=== PATIENT | female | born 1950 | race Caucasian/White ===

== ENCOUNTER 2023-06-03 14:15 | Emergency (ER) | payer MEDICARE, MEDICAID ==
--- NOTE | 2023-06-03 14:32 | ED Physician Documentation ---
PD HPI ABD PAIN - Stated complaint Stated Complaint: RT ABD PX - Chief complaint Chief Complaint: Abd Pain - History obtained from History obtained from: Patient - History of Present Illness Timing - onset: Today (Onset this morning of right lower abdominal pain radiating to the right flank worsened with movement and associated with nausea. No vomiting or diarrhea. No dysuria. No prior similar.) Timing - duration: Hours Timing - details: Abrupt onset, Still present Quality: Sharp, Pain Location: RLQ Radiation: Right flank Improved by: No: Laying still, Position Worsened by: Moving. No: Breathing Associated symptoms: Nausea. No: Fever, Vomiting, Diarrhea, Constipation, Dysuria Similar symptoms before: Has not had sx before Review of Systems Constitutional: denies: Fever, Chills Nose: denies: Rhinorrhea / runny nose, Congestion Throat: denies: Sore throat Respiratory: denies: Cough GI: reports: Abdominal Pain, Nausea. 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 : None Psych: None Musculoskeletal: None Derm: None - Past Surgical History Past Surgical History: Yes Ortho: Other HEENT: Other - Allergies Allergies/Adverse Reactions: Allergies Allergy/AdvReac Type Severity Reaction Status Date / Time No Known Drug Allergies Allergy Verified 06/03/23 14:20 - Social History Does the pt smoke?: No Smoking Status: Never smoker Does the pt drink ETOH?: Yes Does the pt have substance abuse?: No - Immunizations Immunizations are current?: Yes PD ED PE NORMAL - Vitals Vital signs reviewed: Yes - General General: Alert and oriented X 3, Well developed/nourished, Other (appears in pain and moving restlessly. ) - Cardiac Cardiac: RRR, No murmur - Respiratory Respiratory: No respiratory distress, Clear bilaterally - Abdomen Abdomen: Soft, Non distended, No organomegaly, Other (mild to moderate tenderness RLQ without guarding nor percussion tenderness. Some right flank tenderness to percussion. ) - Female Female : Deferred - Rectal Rectal: Deferred - Derm Derm: Normal color, Warm and dry - Neuro Neuro: Alert and oriented X 3, No motor deficit, Normal speech Results - Vitals Vitals: Oxygen O2 Source Room air - Labs Labs: Laboratory Tests 06/03/23 06/03/23 06/03/23 14:41 14:41 16:14 WBC 10.5 RBC 4.11 L Hgb 12.1 Hct 38.2 MCV 92.9 MCH 29.4 MCHC 31.7 L RDW 12.7 Plt Count 284 MPV 10.6 Neut # (Auto) 7.3 H Lymph # (Auto) 2.0 [place] # (Auto) 0.6 Eos # (Auto) 0.4 Baso # (Auto) 0.1 Absolute Nucleated RBC 0.00 Nucleated RBC % 0.0 Sodium 136 Potassium 3.8 Chloride 102 Carbon Dioxide 26 Anion Gap 8.0 BUN 14 Creatinine 0.9 Estimated GFR (MDRD) 62 L Glucose 258 H Calcium 9.8 Total Bilirubin 0.6 AST 19 ALT 17 Alkaline Phosphatase 65 Total Protein 7.1 Albumin 4.3 Globulin 2.8 Albumin/Globulin Ratio 1.5 Lipase < 10 L Urine Color LT. YELLOW Urine Clarity CLEAR Urine pH 7.0 Ur Specific Wheeler 1.010 Urine Protein NEGATIVE Urine Glucose (UA) >=1000 H Urine Ketones NEGATIVE Urine Occult Blood NEGATIVE Urine Nitrite NEGATIVE Urine Bilirubin NEGATIVE Urine Urobilinogen 0.2 (NORMAL) Ur Leukocyte Esterase NEGATIVE Ur Microscopic Review NOT INDICATED Urine Culture Comments NOT INDICATED - Rads (name of study) abd/pelvic CT Relevant Findings:: Prelim report reviewed (moderate stool burden. Normal appendix and GB. Decreased attenuation in pancreatic body could be pancreatitis, fatty infiltrate, ess likely malignancy. Suggests outpt MRI. ), EMP independent interpretation of test PD Medical Decision Making - ED course Complexity details: reviewed results (normal appendix, GB. Moderate stool load. Attenuation in body of pancreas - consider inflammation, focal fatty infiltrate, less likely mass. Correlate with labs. Consider f/u MRI. I did tell them this verbally and gave copy of CT report to them. ), re-evaluated patient (feeling improved after dosing IV with fluids, Zofran, Toradol and Dilaudid. Still some tender RLQ. But testinf does not show acute procdss per se. ), considered differential, d/w patient Departure - Departure Disposition: 01 Home, Self Care Clinical Impression: Right lower quadrant abdominal pain, Increased stool volume, Pancreatic abnormality Condition: Stable Record reviewed to determine appropriate education?: Yes Instructions: ED Abdominal Pain Female Non-Specific Abdominal Pain Comments: Your CT scan does not show an obvious cause for the pain. They comment on some increased stool amounts but that can be quite variable on imaging and does not necessarily mean cause of the pain. If it is connected, I would suggest using a stool softener such as docusate 100 mg once or twice daily over the next several days to a week. Continue with some Metamucil type fiber and stay well-hydrated. We did give a dose of a stool softener and a mild laxative here today to get things started. Otherwise he may be having some musculoskeletal pain given the increase with movement and such. I would suggest some Advil/ibuprofen 400 to 600 mg 3 times daily with food for the next 5 or 6 days. Add Tylenol every 4-6 hours if needed for pain. See how you feel over the next few days with these. Follow-up with your primary care or return to the ER if persistent or increasing symptoms again. Watch for signs of any other new symptoms developing such as fevers or rash or change in location or such Otherwise I would anticipate the symptoms improving over the next few days. Forms: PCP List Discharge Date/Time: 06/03/23 18:07
[2023-06-03 14:49] LABS: BASOPHILS # (AUTO) 0.1 10^3/uL (0.0-0.1); BASOPHILS % (AUTO) 0.9 %; EOSINOPHILS # (AUTO) 0.4 10^3/uL (0.0-0.7); EOSINOPHILS % (AUTO) 3.8 %; HCT - HEMATOCRIT 38.2 % (37.0-47.0); HGB - HEMOGLOBIN 12.1 g/dL (12.0-16.0); LYMPHOCYTES % (AUTO) 19.3 %; MEAN CORPUSCULAR HEMOGLOBIN 29.4 pg (27.0-31.0); MEAN CORPUSCULAR HGB CONC 31.7 g/dL (32.0-36.0); MEAN CORPUSCULAR VOLUME 92.9 fL (81.0-99.0); MEAN PLATELET VOLUME 10.6 fL (7.9-10.8); MONOCYTES # (AUTO) 0.6 10^3/uL (0.0-1.0); NEUTROPHILS # (AUTO) 7.3 10^3/uL (1.5-6.6); NEUTROPHILS % (AUTO) 69.7 %; PLT - PLATELET COUNT 284 10^3/uL (130-450); RED BLOOD COUNT 4.11 10^6/uL (4.20-5.40); RED CELL DISTRIBUTION WIDTH 12.7 % (12.0-15.0); WHITE BLOOD COUNT 10.5 x10^3/uL (4.8-10.8)
[2023-06-03 15:04] LABS: ALBUMIN 4.3 g/dL (3.2-5.5); ALBUMIN/GLOBULIN RATIO 1.5 (1.0-2.2); ALKALINE PHOSPHATASE 65 IU/L (42-121); ALT ALANINE AMINOTRANSFERASE 17 IU/L (10-60); AST ASPARTATE AMINOTRANSFERASE 19 IU/L (10-42); BILIRUBIN,TOTAL 0.6 mg/dL (0.2-1.0); BUN - BLOOD UREA NITROGEN 14 mg/dL (6-20); CALCIUM 9.8 mg/dL (8.5-10.3); CARBON DIOXIDE - CO2 26 mmol/L (21-32); CHLORIDE 102 mmol/L (101-111); CREATININE 0.9 mg/dL (0.6-1.3); GFR - MDRD 62 (>89); GLUCOSE 258 mg/dL (74-104); LIPASE < 10 U/L (11-82); POTASSIUM 3.8 mmol/L (3.5-4.5); SODIUM 136 mmol/L (135-145); TOTAL PROTEIN 7.1 g/dL (6.4-8.9)
[2023-06-03] MEDS ORDERED: iohexoL-300 100 ML VIAL ONE (15:07)
[2023-06-03] MEDS: KETOROLAC 15 MG/ML VIAL IVP STA (15:09)
[2023-06-03] MEDS: ONDANSETRON 4 MG/2 ML VIAL IVP STA (15:09)
[2023-06-03] MEDS: HYDROmorphone 0.5 MG/0.5 ML SYRINGE IVP STA (15:10)
[2023-06-03] MEDS: iohexoL-300 100 ML VIAL IVP ONE (15:39)
[2023-06-03] MEDS: SODIUM CHLORIDE 0.9% 1,000 ML IV STA (15:50)
--- NOTE | 2023-06-03 15:56 | CT Report ---
PROCEDURE: Abdomen/Pelvis W INDICATIONS: right lower abd pain onset this AM CONTRAST: 100mL Omni 300 TECHNIQUE: After the administration of intravenous contrast, a CT scan of the abdomen and pelvis was performed. Images were recorded and evaluated at appropriate window settings. Reformats: coronal and sagittal. F or radiation dose reduction, the following was used: automated exposure control, adjustment of mA and /or kV according to patient size. COMPARISON: None. FINDINGS: Image quality: Diagnostic. Lower chest: Slight tree-in-bud nodules within the lower lobes, nonspecific. Moderate hiatal hernia. Liver: Hepatic steatosis. Gallbladder and biliary tree: No radiopaque stones or wall thickening. No biliary dilation. Spleen: No splenomegaly. Pancreas: Decreased attenuation within the pancreatic body (series 2, image 34), without distal ducta l dilation. Adrenals: No adrenal nodule. Kidneys and ureters: No hydronephrosis. No renal cystic lesion which requires follow up. No solid mas s. Stomach, bowel and peritoneum: No bowel distension. No pathologic free fluid. Normal appendix. No div erticular disease. Moderate colonic stool load. Lymph nodes: No central or retroperitoneal adenopathy. Vessels: No infrarenal aortic aneurysm. PELVIS Reproductive organs: Unremarkable. Bladder: No abnormal wall thickening, accounting for underdistention. Pelvic lymph nodes: No pelvic adenopathy by size criteria. Bones: No aggressive osseous abnormality. Other: No significant ventral or inguinal hernia. Soft tissue thickening within the lower anterior ab dominal narvaez, associated dysmorphic calcification, likely posttraumatic. IMPRESSION: Decreased attenuation within the pancreatic body (series 2, image 34), without distal ductal dilation . Findings could represents pancreatitis, focal fat infiltration, less likely malignancy. Correlate w ith lipase and consider outpatient MRI for complete characterization (pancreatic mass protocol). Moderate colonic stool load. Normal appendix, normal gallbladder and normal kidneys. Reviewed by: Mookie Hughes MD on 06/03/2023 3:54 PM PST Approved by: Mookie Hughes MD on 06/03/2023 3:54 PM PST Station ID: [id number]
[2023-06-03 16:18] LABS: BILIRUBIN,URINE NEGATIVE (NEGATIVE); GLUCOSE, URINE (UA) >=1000 mg/dL (NEGATIVE); KETONES,URINE (UA) NEGATIVE (NEGATIVE); LEUKOCYTE ESTERASE, URINE NEGATIVE (NEGATIVE); NITRITE,URINE NEGATIVE (NEGATIVE); OCCULT BLOOD,URINE NEGATIVE (NEGATIVE); PROTEIN,URINE NEGATIVE (NEGATIVE); UROBILINOGEN,URINE 0.2 (NORMAL) E.U./dL (NORMAL)
[2023-06-03 16:20] LABS: CLARITY,URINE CLEAR (CLEAR)
[2023-06-03] MEDS: DOCUSATE SODIUM 100 MG CAPSULE PO STA (17:07)
[2023-06-03] MEDS: LACTULOSE 10 GM /15 ML UDC PO STA (17:08)
[2023-06-03] MEDS: HYDROmorphone 1 MG/ML CARPUJECT IVP STA (17:08)
[2023-06-03 18:11] VITALS: BP 152/78; O2SAT 92
== END 2023-06-03 18:07 | disposition home or self-care (01) ==
LOC: ED 14:15
DX: R10.31 Right lower quadrant pain (principal); R94.8 Abnormal results of function studies of other organs and systems; K59.09 Other constipation
CPT/HCPCS: 36415; 74177; 80053; 81003; 83690; 85025; 96374; 96375; 96376; 99284; 99285; A9270; J1170; Q9967; 81001; 87086

== ENCOUNTER 2023-06-19 10:01 | Emergency (ER) | payer MEDICARE, MEDICAID ==
[2023-06-19] MEDS: LIDOCAINE PATCH 4% TOP STA (10:41)
--- NOTE | 2023-06-19 11:20 | ED Physician Documentation ---
PD HPI LOWER EXT INJURY - Stated complaint Stated Complaint: RT LEG PX - Chief complaint Chief Complaint: Back Pain - History obtained from History obtained from: Patient - Additional information Additional information: Patient is a 72-year-old female presenting for evaluation of pain at the radiates from the right buttock through the right leg which has been ongoing for at least 2 weeks. Patient states she was seen here 2 weeks ago where they found that she had some constipation. She states that she was having some pain prior to that but it has been continuing for the last 2 weeks and worsening. She states that she is able to ambulate but needs to take breaks as walking causes increased pain. She has tried ibuprofen and acetaminophen. Denies any falls or injuries. No swelling. 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 : None Psych: None Musculoskeletal: None Derm: None - Past Surgical History Past Surgical History: Yes Ortho: Other HEENT: Other - Present Medications Home Medications: Ambulatory Orders Medication Instructions Recorded Confirmed Atorvastatin [Lipitor] 20 mg PO QPM 06/19/23 06/19/23 Cyclobenzaprine [Flexeril] 5 - 10 mg PO TID PRN #20 tablet 06/19/23 Insulin Glargine [Lantus Solostar] 15 unit SUBQ DAILY 06/19/23 06/19/23 Insulin Lispro [Humalog Kwikpen 6 units SUBQ DAILY 06/19/23 06/19/23 U-100] Lidocaine Patch 5% [Lidoderm Patch] 1 patch TOP DAILY PRN #10 patch 06/19/23 Losartan [Cozaar] 50 mg PO DAILY 06/19/23 06/19/23 amLODIPine [Norvasc] 10 mg PO DAILY 06/19/23 06/19/23 - Allergies Allergies/Adverse Reactions: Allergies Allergy/AdvReac Type Severity Reaction Status Date / Time No Known Drug Allergies Allergy Verified 06/19/23 10:12 - Social History Does the pt smoke?: No Smoking Status: Never smoker Does the pt drink ETOH?: Yes Does the pt have substance abuse?: No - Immunizations Immunizations are current?: Yes PD ED PE NORMAL - General General: Alert and oriented X 3, No acute distress, Well developed/nourished - HEENT HEENT: Atraumatic - Neck Neck: Supple, no meningeal sign - Cardiac Cardiac: RRR, Strong equal pulses - Respiratory Respiratory: No respiratory distress, Clear bilaterally - Derm Derm: Warm and dry - Extremities Extremities: No deformity, No edema, No calf tenderness / cord, Other (Normal range of motion at right knee and right hip, slight tenderness into right buttock, good distal pulses, no bony tenderness in the extremity, no appreciable swelling) - Neuro Neuro: Alert and oriented X 3, No motor deficit, No sensory deficit, Normal speech Results - Vitals Vitals: Vital Signs - 24 hr 06/19/23 06/19/23 10:09 12:21 Temperature 36.4 C L 36.5 C Heart Rate 75 72 Respiratory 16 16 Rate Blood Pressure 146/56 H 130/60 O2 Saturation 97 98 Oxygen O2 Source Room air PD Medical Decision Making - ED course Complexity details: reviewed results, d/w patient ED course: Patient is a 72-year-old female presenting for evaluation of pain from the right hip down the right leg. No reported trauma. This been ongoing for 2 weeks. Neurovascularly intact. No leg swelling or calf tenderness to suggest DVT. Given her age I did obtain an x-ray of the right hip which I reviewed I see no fracture or dislocation. She does have symptoms that suggest a particular pathology and we discussed trial of anti-inflammatories, lidocaine patch and muscle relaxers. She does not have any symptoms to suggest cord compression. She has been able to ambulate at home. Patient counseled on need for close follow-up as well as concerning symptoms to return for. Departure - Departure Disposition: 01 Home, Self Care Clinical Impression: Radicular pain of right lower extremity Condition: Stable Instructions: Stretch Hamstring W Towel, Hamstring Stretch, ED Sciatica Prescriptions: Cyclobenzaprine [Flexeril] 5 - 10 mg PO TID PRN #20 tablet PRN Reason: Spasms Lidocaine Patch 5% [Lidoderm Patch] 1 patch TOP DAILY PRN #10 patch PRN Reason: pain Comments: I do not see any signs of a fracture on your x-ray. The radiologist read is still pending. I do suspect a pinched nerve as the site of your symptoms. I am sending a prescription for lidocaine patches and a muscle relaxer to [facility] in [place]. I would recommend continuing with an anti-inflammatory such as acetaminophen. I would also recommend close follow-up with her primary care provider. I also included some instructions on stretches that may help with the pain. Return to the ER if you develop any worsening symptoms such as swelling in the leg. Discharge Date/Time: 06/19/23 12:21
--- NOTE | 2023-06-19 12:09 | XRAY Report ---
PROCEDURE: Hip w/Pelvis 2-3V RT INDICATIONS: pain TECHNIQUE: 2 views of the hip were acquired. COMPARISON: None. FINDINGS: Bones: Left hip fixation with moderate hip degenerative changes. Moderate right hip degenerative darby nges. No displaced fracture or dislocation. Partially seen lumbosacral degenerative changes. Pubic sy mphysis degenerative changes also present. Soft tissues: Device projects on frontal view over the right sacrum. There are vascular calcificatio ns. Heterotopic ossification seen surrounding the left femur. IMPRESSION: Moderate bilateral hip arthrosis. Left femur fixation hardware. If there is high concern for occult i njury, consider repeat radiography or cross-sectional imaging. Reviewed by: Tahir Rodarte MD on 06/19/2023 12:07 PM PST Approved by: Tahir Rodarte MD on 06/19/2023 12:07 PM PST Station ID: [id number]
[2023-06-19 12:33] VITALS: BP 130/60; O2SAT 98
== END 2023-06-19 12:21 | disposition home or self-care (01) ==
LOC: ED 10:01
DX: M54.10 Radiculopathy, site unspecified (principal)
CPT/HCPCS: 73502; 99283; A9270